=== PATIENT | female | born 1945 | race Caucasian/White ===

== ENCOUNTER 2022-04-21 09:15 | Observation (INO) | payer MEDICARE, OTHER ==
[~2022-04-21] VITALS: Ht 162.6 cm; Wt 87.5 kg
[~2022-04-21 09:15] MED LIST: HYDROCODON-ACE1 EAC2 PO
[2022-04-21 09:26] LABS: HEMOGLOBIN 13.7 gm/dl (12.3-15.3); RED BLOOD COUNT 4.61 M/UL (4.00-5.10); WHITE BLOOD COUNT 8.8 K/UL (4.5-11.0)
[2022-04-21 09:49] LABS: BUN/CREATININE RATIO 18 (0-10)
[2022-04-21] MEDS ORDERED: ATORVASTATIN CA80 MG PO (17:26)
[2022-04-21] MEDS ORDERED: RHOPRESSA2.5 ML OP (17:26)
[2022-04-21] MEDS ORDERED: PANTOPRAZOLE SO20 MG PO (17:27)
[2022-04-21] MEDS ORDERED: METOPROLOL SUCC50 MG PO (17:27)
[2022-04-21] MEDS ORDERED: ELIQUIS5 MG PO (17:28)
[2022-04-21] MEDS ORDERED: LORATADINE10 MG PO (17:28)
[2022-04-21] MEDS ORDERED: LUMIGAN 0.01%2.5 ML EYEBOTH (17:28)
[2022-04-21] MEDS ORDERED: FUROSEMIDE20 MG PO (17:30)
[2022-04-21] MEDS ORDERED: VITAMIN D350 MC3 PO (17:31)
[2022-04-21] MEDS ORDERED: MULTIVITAMIN1 EACH PO (17:32)
[2022-04-21] MEDS ORDERED: FISH OIL 1,0001 EAC1 PO (17:32)
[2022-04-21] MEDS ORDERED: MELATONIN3 MG PO (17:34)
--- NOTE | 2022-04-22 01:03 | NUR ---
Late entry for 04/22/22 at 0015; patient is resting in bed. States that meds help alleviate some of her pain.
--- NOTE | 2022-04-22 01:45 | NUR ---
Patient is resting in bed with eyes closed. No s/s of distress at this time.
[2022-04-22 08:43] LABS: HEMOGLOBIN 11.8 gm/dl (12.3-15.3); WHITE BLOOD COUNT 7.1 K/UL (4.5-11.0)
[2022-04-22 08:46] LABS: RED BLOOD COUNT 4.02 M/UL (4.00-5.10)
[2022-04-22 08:59] LABS: BUN/CREATININE RATIO 17 (0-10)
--- NOTE | 2022-04-22 12:04 | NUR ---
PATIENT RETURNED BACK FROM MRI, TELE PLACED BACK ON. I WENT INTO THE PATIENTS ROOM, SHE LOOKED AT ME AND ASKED ME IF I AM GOING TO GIVE HER SOME MEDICATION BECAUSE SHE REALLY NEEDED SOME MEDICATION. I ASKED PATIENT WHAT SHE NEEDED MEDICINE FOR, SHE STATED SHE WAS TWITCHING EVERYWHERE AND ASKED IF I COULD SEE IT. I REASSURED HER THAT I COULD NOT SEE HER TWITCHING. HER DAUGHTER PLACED HER HAND ON PATIENTS SHOULDER AND STATES, YES SHE IS KIND OF TWITCHING.
[2022-04-23] MEDS ORDERED: ASPIRIN EC81 MG PO (16:33)
[2022-04-23] MEDS ORDERED: CELEXA20 MG PO (16:33)
[2022-04-23] MEDS ORDERED: XANAX0.25 MG PO (16:33)
--- NOTE | 2022-04-23 17:52 | NUR ---
report called to a home health, discharge explained pt and family verbalized understanding. ems arranged awaiting transport.
== END 2022-04-23 19:15 | disposition home or self-care (01) ==
LOC: ER1 09:15 → MED SURG 4 14:56 → CDU 14:56 → MED SURG 4 16:25
PROVIDERS: Emergency Medicine; Physician Assistant; ADMIT Internal Medicine
DX: R25.9 Unspecified abnormal involuntary movements (principal); Z20.822 Contact with and (suspected) exposure to COVID-19; R82.71 Bacteriuria; E86.0 Dehydration; I69.354 Hemiplegia and hemiparesis following cerebral infarction affecting left non-dominant side; I48.0 Paroxysmal atrial fibrillation; I10 Essential (primary) hypertension; E78.5 Hyperlipidemia, unspecified; F41.9 Anxiety disorder, unspecified; F32.A Depression, unspecified; L03.114 Cellulitis of left upper limb; Z79.01 Long term (current) use of anticoagulants; Z79.899 Other long term (current) drug therapy; Z87.891 Personal history of nicotine dependence; Z88.6 Allergy status to analgesic agent
CPT/HCPCS: ECHO; 36415; 51702; 70450; 70496; 70498; 70551; 71045; 73030; 73070; 80048; 80053; 81001; 83735; 84484; 85025; 85610; 85652; 85730; 86140; 92526; 92610; 93005; 93306; 96374; 96375; 96376; 97162; 97166; 97530; 97530-GP-CQ; 99285; G0378; J0696; J2405; Q9967; U0002